=== PATIENT | female | born 1965 | race Two or more races ===

== ENCOUNTER 2023-08-21 17:47 | Emergency (ER) | payer OTHER ==
[~2023-08-21] VITALS: Ht 167.6 cm; Wt 65.8 kg
[2023-08-21 17:58] VITALS: BP 119/63; TEMP 98
[2023-08-21 18:46] VITALS: O2SAT 98
== END 2023-08-21 18:47 ==
LOC: ER 17:56
DX: F15.90 Other stimulant use, unspecified, uncomplicated (principal); I10 Essential (primary) hypertension